=== PATIENT | male | born 1945 | race Caucasian/White ===

== ENCOUNTER → 2016-03-10 | Outpatient (CLI) | payer BC ==
[~2016-03-10] MED LIST: ATOR-14 PO; CLBCRM30 EXT; DESO0.0562; ETAN50IN2 SQ; FEXO1TAB46 PO; FLCO60 TOP; FLUO0.05; FLUO5OIL OTB; HYDR-3785 PO; LISI20TA3 PO; LTRCR30; NAPR-1169 PO; POLYSOL4 OPR; PRED1SUS3; ROPI1TAB PO; TRMCR130WC TOP
[2016-03-10 17:40] LABS: BASO % 0.4 %; BASO ABS # 0.02 K/uL (0-0.2); COMPLETE YES; EOS % 1.5 %; HEMATOCRIT 40.9 % (42-52); IG% 0.2 %; LYMPH % 34.1 %; LYMPH ABS # 1.58 K/uL (1.2-3.4); MEAN CELL VOLUME 93.2 fL (80-100); MEAN CORPUSCULAR HEMOGLOBIN 32.1 pg (25-34); MEAN CORPUSCULAR HGB CONC 34.5 g/dl (32-36); MEAN PLATELET VOLUME 9.2 fL (7.4-10.4); MONO % 5.6 %; NEUT % 58.2 %; PLATELET COUNT 192 K/uL (130-400); RED BLOOD COUNT 4.39 M/uL (4.7-6.1); WHITE BLOOD COUNT 4.63 K/uL (4.8-10.8)
== END | disposition home or self-care (01) ==
LOC: C.LAB1850 17:20
PROVIDERS: ATTEND Dermatology
DX: L40.0 Psoriasis vulgaris (principal)

== ENCOUNTER → 2016-07-10 | Outpatient (CLI) | payer BC ==
[2016-07-10 18:49] LABS: BASO % 1.2 %; BASO ABS # 0.04 K/uL (0-0.2); COMPLETE YES; EOS % 2.6 %; HEMATOCRIT 42.3 % (42-52); LYMPH % 39.3 %; LYMPH ABS # 1.36 K/uL (1.2-3.4); MEAN CELL VOLUME 94.2 fL (80-100); MEAN PLATELET VOLUME 8.7 fL (7.4-10.4); MONO % 12.4 %; NEUT % 44.5 %; PLATELET COUNT 179 K/uL (130-400); RED BLOOD COUNT 4.49 M/uL (4.7-6.1); WHITE BLOOD COUNT 3.46 K/uL (4.8-10.8)
[2016-07-10 19:06] LABS: ALT/SGPT 38 U/L (12-78); AST/SGOT 36 U/L (15-37); BLOOD UREA NITROGEN 22 mg/dl (7-18); BUN/CREATININE RATIO 16.6 (10-20); CARBON DIOXIDE 28 mmol/L (21-32); CHLORIDE 114 mmol/L (98-107); GLUCOSE 105 mg/dl (70-99); POTASSIUM 4.4 mmol/L (3.5-5.1); SODIUM 146 mmol/L (136-145)
[2016-07-10 19:09] LABS: ALB/GLOB RATIO 1.3 (0.9-2); ALKALINE PHOSPHATASE 74 U/L (45-117); CHOLESTEROL 173 mg/dl (0-200); CHOLESTEROL/HDL RATIO 2.4; HDL CHOLESTEROL 71 mg/dl; LDL CHOLESTEROL CALCULATED 88 mg/dl; TRIGLYCERIDES 68 mg/dl (0-150); VERY LOW DENSITY LIPOPROT CALC 14 mg/dl
== END | disposition home or self-care (01) ==
LOC: C.LAB 18:22
PROVIDERS: ATTEND Internal Medicine Pulmonary Disease
DX: I10 Essential (primary) hypertension (principal); L40.9 Psoriasis, unspecified; E78.5 Hyperlipidemia, unspecified; J30.9 Allergic rhinitis, unspecified

== ENCOUNTER → 2017-01-07 | Outpatient (CLI) | payer BC ==
[2017-01-07 16:53] LABS: BASO % 0.5 %; BASO ABS # 0.02 K/uL (0-0.2); COMPLETE YES; EOS % 3.1 %; HEMATOCRIT 42.3 % (42-52); IG% 0.5 %; LYMPH % 37.6 %; LYMPH ABS # 1.47 K/uL (1.2-3.4); MEAN CELL VOLUME 94.2 fL (80-100); MEAN CORPUSCULAR HEMOGLOBIN 33.2 pg (25-34); MEAN CORPUSCULAR HGB CONC 35.2 g/dl (32-36); MEAN PLATELET VOLUME 9.3 fL (7.4-10.4); MONO % 9.7 %; NEUT % 48.6 %; PLATELET COUNT 227 K/uL (130-400); RED BLOOD COUNT 4.49 M/uL (4.7-6.1); WHITE BLOOD COUNT 3.91 K/uL (4.8-10.8)
[2017-01-07 17:06] LABS: ALT/SGPT 40 U/L (12-78); AST/SGOT 38 U/L (15-37); BLOOD UREA NITROGEN 22 mg/dl (7-18); BUN/CREATININE RATIO 14.1 (10-20); CALCIUM 9.2 mg/dl (8.5-10.1); CARBON DIOXIDE 28 mmol/L (21-32); CHLORIDE 108 mmol/L (98-107); CHOLESTEROL 185 mg/dl (0-200); CREATININE 1.57 mg/dl (0.60-1.40); GLUCOSE 95 mg/dl (70-99); POTASSIUM 4.3 mmol/L (3.5-5.1); SODIUM 140 mmol/L (136-145)
[2017-01-07 17:17] LABS: ALB/GLOB RATIO 1.2 (0.9-2); ALKALINE PHOSPHATASE 91 U/L (45-117); CHOLESTEROL/HDL RATIO 2.4; HDL CHOLESTEROL 76 mg/dl; LDL CHOLESTEROL CALCULATED 91 mg/dl; TRIGLYCERIDES 88 mg/dl (0-150); VERY LOW DENSITY LIPOPROT CALC 18 mg/dl
== END | disposition home or self-care (01) ==
LOC: C.LABBC 13:33
PROVIDERS: ATTEND Internal Medicine Pulmonary Disease
DX: I10 Essential (primary) hypertension (principal); R05 Cough; E78.5 Hyperlipidemia, unspecified; L40.50 Arthropathic psoriasis, unspecified; J30.9 Allergic rhinitis, unspecified; D89.89 Other specified disorders involving the immune mechanism, not elsewhere classified

== ENCOUNTER → 2017-07-08 | Outpatient (CLI) | payer BC ==
[2017-07-08 19:05] LABS: BASO % 0.4 %; BASO ABS # 0.02 K/uL (0-0.2); EOS % 2.3 %; EOS ABS # 0.11 K/uL (0-0.5); HEMATOCRIT 41.5 % (42-52); HEMOGLOBIN 15.6 g/dL (14.0-18.0); LYMPH % 42.3 %; LYMPH ABS # 1.99 K/uL (1.2-3.4); MEAN CELL VOLUME 89.8 fL (80-100); MEAN CORPUSCULAR HEMOGLOBIN 33.8 pg (25-34); MEAN CORPUSCULAR HGB CONC 37.6 g/dl (32-36); MEAN PLATELET VOLUME 8.7 fL (7.4-10.4); MONO % 7.7 %; MONO ABS # 0.36 K/uL (0.11-0.59); NEUT % 47.3 %; NEUT ABS # 2.22 K/uL (1.4-6.5); PLATELET COUNT 196 K/uL (130-400); RED CELL DISTRIBUTION WIDTH CV 12.8 % (11.5-14.5); RED CELL DISTRIBUTION WIDTH SD 41.7 fL (36.4-46.3)
[2017-07-08 19:22] LABS: ALBUMIN 4.1 gm/dl (3.4-5.0); ALT/SGPT 38 U/L (12-78); AST/SGOT 36 U/L (15-37); BLOOD UREA NITROGEN 17 mg/dl (7-18); CALCIUM 8.9 mg/dl (8.5-10.1); CARBON DIOXIDE 26 mmol/L (21-32); CHOLESTEROL 168 mg/dl (0-200); GLUCOSE 90 mg/dl (70-99); POTASSIUM 3.9 mmol/L (3.5-5.1); SODIUM 140 mmol/L (136-145)
[2017-07-08 19:25] LABS: ALKALINE PHOSPHATASE 72 U/L (45-117); LDL CHOLESTEROL CALCULATED 83 mg/dl; TOTAL PROTEIN 7.3 gm/dl (6.4-8.2)
== END | disposition home or self-care (01) ==
LOC: C.LAB 18:24
PROVIDERS: ATTEND Internal Medicine Pulmonary Disease
DX: L40.50 Arthropathic psoriasis, unspecified (principal)

== ENCOUNTER → 2017-09-24 | Outpatient (CLI) | payer BC ==
[~2017-09-24] MED LIST changes: -ATOR-14 PO; +ATOR10TA82 PO; +ATR10 PO; -FEXO1TAB46 PO; -FLCO60 TOP; +FLUO0.0119 TOP; -FLUO0.05; -FLUO5OIL OTB; -HYDR-3785 PO; -LISI20TA3 PO; +LOSA100T65 PO; -LTRCR30; +MISCCAP80 PO; -NAPR-1169 PO; +NAPR-22 PO; +POLYSOL4 OPB; -POLYSOL4 OPR; -PRED1SUS3; -ROPI1TAB PO; +SNG10 PO
--- NOTE | 2017-09-24 11:43 | DIAGNOSTIC IMAGING REPORT ---
ABDOMEN 2VIEW W/PA CHEST RTN CLINICAL HISTORY: R10.9 Abdominal [id number] pain. Nausea. COMPARISON STUDY: No previous studies for comparison. FINDINGS: The soft tissues, psoas shadows, renal outlines and intestinal gas pattern appear normal. There is no evidence for bowel obstruction. There is no evidence for free intraperitoneal air. No abnormal abdominal calcifications are seen. A frontal view of the chest was performed and is unremarkable. IMPRESSION: Normal study. The above report was generated using voice recognition software. It may contain grammatical, syntax or spelling errors. Electronically signed by: Elijah Plasencia M.D. 09/24/2017 11:42 AM Dictated Date/Time: 09/24/2017 11:42 AM
== END | disposition home or self-care (01) ==
LOC: C.RAD1850 11:18
PROVIDERS: ATTEND Internal Medicine
DX: R10.9 Unspecified abdominal pain (principal)

== ENCOUNTER 2020-01-20 12:58 | Inpatient (IN) ==
--- NOTE | 2020-01-20 14:42 | Emergency Department Note ---
Impression & Plan Acute right flank pain, Renal colic, CHAPINCITO (acute kidney injury) ED Provider Note NAME: FREEDOM HUGHES AGE: 74 SEX: M : 1945 ARRIVES VIA: Walk-In INFORMANT: [Patient] ED PROVIDER(S): [Brennen French MD] CHIEF COMPLAINT: Flank pain HISTORY OF PRESENT ILLNESS: The patient is a 74-year-old male who states that for 2 weeks, he has had some intermittent right flank pain and some pain in the right groin. He has not noticed any urinary blood. He has had some urinary urgency. The pain has come and gone and has been pressure-like. The pain was a 7 on a scale 1 out of 10 at times. Right now, the pain is mild. There has been no nausea or vomiting. No fever. No cough or cold or congestion. No diarrhea. Patient saw his doctor yesterday and had outpatient testing performed. His white count was normal. He had a creatinine of 2.[address] above his baseline. Urinalysis showed blood but no infection. A CT of the abdomen and pelvis was performed showing a right sided ureteral obstruction from a 4 mm stone. The patient was told to report to the ED today. He is going to have urgent urologic stenting to relieve the obstruction. REVIEW OF SYSTEMS: See HPI for pertinent positives and negatives. A total of ten systems were reviewed and were otherwise negative. PMHx/PSHx: See Below SOCIAL HISTORY: See Below. PHYSICAL EXAM: GENERAL: Patient is in no acute distress. HEENT: No acute trauma, normocephalic atraumatic, mucous membranes moist, no nasal congestion, no scleral icterus. NECK: No stridor, no adenopathy, no meningismus, trachea is midline. LUNGS: Clear to auscultation bilaterally, no wheeze, no rhonchi, breath sounds equal. HEART: Subtle systolic murmur, regular rate and rhythm. ABDOMEN: Soft, mildly tender in the right lower quadrant, bowel sounds positive, no hernias, no peritonitis. EXTREMITIES: No cyanosis or edema, full range of motion of all the joints without pain or difficulty, no signs for acute trauma. NEUROLOGIC: Oriented x 3, no acute motor or sensory deficits, no focal weakness. SKIN: No rash, no jaundice, no diaphoresis. Back: No flank discomfort to percussion. DIFFERENTIAL DIAGNOSIS: Renal colic, UTI, appendicitis, diverticulitis, mesenteric ischemia, aortic pathology, infections, inflammatory bowel disease, PUD, biliary pathology, as well as other pathologies. EMERGENCY DEPARTMENT COURSE/PROCEDURES: ECG: Indication was abdominal pain. The ECG shows a sinus bradycardia with a rate of 54. There is no ST elevation, no PVCs. The QTc is 421. Continuous Cardiac Monitoring: An order was placed for continuous cardiac monitoring. The monitor shows a rate of 72 with normal sinus rhythm. MEDICAL DECISION MAKING: There is no leukocytosis or concerning anemia. No coagulopathy. Creatinine is elevated at 1.87, this is actually improved compared to yesterday. Urinalysis does not show evidence for infection. Coronavirus testing was negative. ECG showed a sinus bradycardia, no acute ischemia. I reviewed the patient's work-up from yesterday. He has a 4 mm right ureteral stone with hydronephrosis. I talked to Dr. Crandall of urology. The patient is going to require stenting. He will need to be hydrated though to try to reverse his acute kidney injury. The patient was ordered for 1 L of IV saline. He did not require anything for pain. I talked to the patient, I spoke with case management. The patient will be hospitalized for this stent placement and for his acute kidney injury. The on- call hospitalist was consulted. Past Med/Surg History Medical History Cataract of right eye Cataract, left eye Chronic kidney disease Diverticulitis History of ASCVD HLD (hyperlipidemia) HTN (hypertension) Surgical History History of colonoscopy Family History Unknown Diabetes Brother Coronary arteriosclerosis Hyperlipidemia Social History Smoking Status: Never smoker Hx Alcohol Use: Yes Alcohol Intake Frequency Comment: SOCIALLY marital status: Current Living Situation: Spouse current occupational status: employed Feels Safe at Home: Yes Allergies Allergies Allergy/AdvReac Type Severity Reaction Status Date / Time cat dander Allergy Unknown ALLERGY Verified 01/20/20 15:02 TESTING + No Known Drug Allergies Allergy Unknown NO KNOWN Verified 01/20/20 15:02 DRUG ALLERGIES PIG WEED Allergy Unknown ALLERGY Uncoded 01/20/20 15:02 TESTED + Home Meds Home Medications Medication Instructions Recorded Confirmed Saccharomyces boulardii 250 mg 250 mg PO UD cap 10/08/18 01/20/20 capsule clobetasol 0.05 % topical ointment 1 applic TOPICAL BID gm 10/08/18 01/20/20 desonide 0.05 % topical cream 1 applic TOPICAL DAILY gm 10/08/18 01/20/20 fluocinonide 0.05 % topical cream 1 applic TOPICAL DAILY gm 10/08/18 01/20/20 multivitamin 1 tab PO DAILY 10/08/18 01/20/20 triamcinolone acetonide 0.1 % 1 applic TOPICAL DAILY gm 10/08/18 01/20/20 topical cream fexofenadine 180 mg tablet 180 mg PO DAILY tab 11/09/18 01/20/20 hydroxyzine HCl 10 mg tablet 10 mg PO TID PRN tab 11/09/18 01/20/20 naproxen 500 mg tablet 500 mg PO BID PRN #180 tab 11/09/18 01/20/20 aeiczvl-sxljnhgloxkts-lsyobacs 250 2 tab PO ONCE PRN tab 07/27/19 01/20/20 mg-250 mg-65 mg tablet etanercept 50 mg SUBCUT UD ml 07/27/19 01/20/20 calcium acetate 667 mg PO DAILY 01/20/20 01/20/20 Previous Rx's Medication Instructions Recorded losartan 100 mg tablet 100 mg PO DAILY #90 tab 07/26/19 atorvastatin 10 mg tablet 10 mg PO DAILY #90 tab 09/16/19 montelukast 10 mg tablet 10 mg PO DAILY #90 tab 10/27/19 cyclobenzaprine 5 mg tablet 5 mg PO TID PRN #20 tab 12/13/19 Results & Data (ED) Vital Signs Vital Signs - 24 hr 01/20/20 13:11 01/20/20 15:14 01/20/20 15:30 Temperature 36.7 C Temperature Source Oral Pulse Rate 72 55 L Pulse Rate [Apical] 54 L Pulse Rate from SpO2 Sensor 56 L Pulse Rhythm [Apical] Pulse Strength [Apical] Respiratory Rate 20 13 18 Respiratory Effort / Characteristics Non-Labored Spontaneous Respiratory Depth Normal Respiratory Pattern Regular Blood Pressure 164/92 H 169/95 H Blood Pressure [Right Arm] 175/94 H Blood Pressure Mean 116 106 Blood Pressure Mean [Right Arm] 121 Blood Pressure Position [Right Arm] Pulse Oximetry 95 100 99 Oxygen Delivery Method Room Air Room Air Room Air Sepsis Recent Fever Within 48 Hours No Sepsis New/Unexplained Change in Mental Status N/A Sepsis Action Taken by Nursing No Action Required 01/20/20 16:00 01/20/20 16:40 Temperature 36.3 C L Temperature Source Oral Pulse Rate 61 Pulse Rate [Apical] 74 Pulse Rate from SpO2 Sensor 61 Pulse Rhythm [Apical] Regular Pulse Strength [Apical] Normal Respiratory Rate 18 18 Respiratory Effort / Characteristics Non-Labored Spontaneous Respiratory Depth Normal Respiratory Pattern Regular Blood Pressure 174/92 H Blood Pressure [Right Arm] 185/104 H Blood Pressure Mean 112 Blood Pressure Mean [Right Arm] 131 Blood Pressure Position [Right Arm] Lying Pulse Oximetry 100 100 Oxygen Delivery Method Room Air Sepsis Recent Fever Within 48 Hours Sepsis New/Unexplained Change in Mental Status Sepsis Action Taken by Long-Term Medications Current Medication List: was personally reviewed by me Laboratory Data Attestation: I reviewed the patient's lab results. Result diagrams: 01/20/20 14:05 01/20/20 14:05 Lab Results 01/20/20 01/20/20 01/20/20 Range/Units 14:05 14:05 14:05 WBC 6.16 (4.8-10.8) K/uL RBC 4.57 L (4.7-6.1) M/uL Hgb 14.6 (14.0-18.0) g/dL Hct 41.9 L (42-52) % MCV 91.7 (80-100) fL MCH 31.9 (25-34) pg MCHC 34.8 (32-36) g/dL RDW Std Deviation 43.3 (36.4-46.3) fL RDW Coeff of Apple 12.9 (11.5-14.5) % Plt Count 283 (130-400) K/uL MPV 9.5 (7.4-10.4) fL PT 11.2 (9.0-12.0) Seconds INR 1.1 (0.9-1.1) APTT 29.8 (21.0-31.0) Seconds PTT Ratio 1.1 Sodium 138 (136-145) mmol/L Potassium 4.5 (3.5-5.1) mmol/L Chloride 108 H (98-107) mmol/L Carbon Dioxide 26 (21-32) mmol/L Anion Gap 4.0 (3-11) BUN 52 H (7-18) mg/dl Creatinine 1.87 H D (0.6-1.4) mg/dl Est Cr Clr Drug Dosing 36.9 ml/min Est GFR ( Amer) 40.7 Est GFR (Non-Af Amer) 35.1 BUN/Creatinine Ratio 27.7 H (10-20) Glucose 88 (70-99) mg/dl Calcium 9.6 (8.5-10.1) mg/dl Urine Color Urine Appearance (Clear) Urine pH (4.5-7.5) Ur Specific [place] (1.000-1.030) Urine Protein (Negative) Urine Glucose (UA) (Negative) Urine Ketones (Negative) Urine Blood (Negative) Urine Nitrite (Negative) Urine Bilirubin (Negative) Urine Urobilinogen (Negative) Ur Leukocyte Esterase (Negative) Urine WBC (Auto) (0-5) /hpf Urine RBC (Auto) (0-4) /hpf U Hyaline Cast (Auto) (0-5) /lpf U Epithel Cells (Auto) (0-5) /lpf Urine Bacteria (Auto) (Negative) SARS-CoV-2 Ag (Rapid) (Negative) 01/20/20 01/20/20 Range/Units 16:15 Unknown WBC (4.8-10.8) K/uL RBC (4.7-6.1) M/uL Hgb (14.0-18.0) g/dL Hct (42-52) % MCV (80-100) fL MCH (25-34) pg MCHC (32-36) g/dL RDW Std Deviation (36.4-46.3) fL RDW Coeff of Apple (11.5-14.5) % Plt Count (130-400) K/uL MPV (7.4-10.4) fL PT (9.0-12.0) Seconds INR (0.9-1.1) APTT (21.0-31.0) Seconds PTT Ratio Sodium (136-145) mmol/L Potassium (3.5-5.1) mmol/L Chloride (98-107) mmol/L Carbon Dioxide (21-32) mmol/L Anion Gap (3-11) BUN (7-18) mg/dl Creatinine (0.6-1.4) mg/dl Est Cr Clr Drug Dosing ml/min Est GFR ( Amer) Est GFR (Non-Af Amer) BUN/Creatinine Ratio (10-20) Glucose (70-99) mg/dl Calcium (8.5-10.1) mg/dl Urine Color Yellow Urine Appearance Clear (Clear) Urine pH 5.0 (4.5-7.5) Ur Specific [place] 1.019 (1.000-1.030) Urine Protein Negative (Negative) Urine Glucose (UA) Negative (Negative) Urine Ketones Negative (Negative) Urine Blood Negative (Negative) Urine Nitrite Negative (Negative) Urine Bilirubin Negative (Negative) Urine Urobilinogen Negative (Negative) Ur Leukocyte Esterase 1+ H (Negative) Urine WBC (Auto) 5-10 H (0-5) /hpf Urine RBC (Auto) 0-4 (0-4) /hpf U Hyaline Cast (Auto) 1-5 (0-5) /lpf U Epithel Cells (Auto) 5-10 H (0-5) /lpf Urine Bacteria (Auto) Negative (Negative) SARS-CoV-2 Ag (Rapid) Negative (Negative) Administered Medications Discontinued Medications Sodium Chloride (Nss 1000ml) 1,000 mls @ 999 mls/hr IV .Q1H1M ONE Stop: 01/20/20 15:49 Last Admin: 01/20/20 15:34 Dose: 999 mls/hr Documented by: [id number] Imaging Data Radiologist's Impression: 01/19/[address] WITHOUT CONTRAST CT DOSE: 342.26 mGy.cm HISTORY: Follow up study in a patient with history of renal calculi. Acute right-sided flank pain N20.0 - Calculus of kidney TECHNIQUE: Multiaxial CT images of the abdomen and pelvis were performed without contrast. A dose lowering technique was utilized adhering to the principles of ALARA. COMPARISON STUDY: CT abdomen and pelvis 01/12/2019, renal ultrasound 10/13/2018. FINDINGS: Clear lung bases. No pneumatosis or pneumoperitoneum. Imaged inferior cardiac chambers are unremarkable. Limited evaluation of the solid abdominal organs without the use of IV contrast. The spleen, pancreas, adrenal glands, contracted gallbladder and liver appear unremarkable. 10 mm left hepatic lobe cyst. There are numerous nonobstructing bilateral nephrolithiasis measuring up to approximately 4 mm bilaterally. There is an exophytic 9 mm indeterminate intermediate attenuating lesion of the lateral interpolar right kidney with [place]oun[place] of 32, possibly reflective of a proteinaceous or hemorrhagic cyst. There is mild to moderate right-sided hydroureteronephrosis secondary to a 4 x 4 x 4 mm irregular calculus of the right ureterovesicular junction. Numerous pelvic basin calcifications. Mild prostamegaly. Partial distention of the urinar y bladder with mild wall thickening and perivesicular stranding. Small left and lqozf-sr-cmxhnndp right fat filled inguinal hernias. Calcified plaque of the abdominal aorta without aneurysm. No adenopathy. Indeterminate hyperdense material noted within the dependent stomach. There is no bowel obstruction or bowel wall thickening. Colonic diverticulosis without acute diverticulitis. Moderate fecal retention. Noninflamed appendix. Scattered small bowel air-fluid levels, likely physiologic. Degenerative changes of the spine, pelvis and hips. IMPRESSION: 1. Mild to moderate right-sided hydroureteronephrosis secondary to an obstructing 4 mm calculus of the right ureterovesicular junction. 2. Numerous nonobstructing bilateral nephrolithiasis. 3. No bowel obstruction or bowel wall thickening. 4. Moderate fecal retention. 5. Additional findings as above. Discharge Plan Visit Data Chief Complaint: Urinary Symptoms Stated Complaint: KIDNEY PAIN, BLOOD IN URINE, BLOCKAGE, SENT BY DR GREENFIELD Provider: Brennen French Discharge Problem: Acute right flank pain, Renal colic, CHAPINCITO (acute kidney injury) Patient Disposition: Admitted As Inpatient Condition: Good Discharge Instructions Interventions: ED Discharge Assessment Last Done: 01/20/20 16:13
[2020-01-20] MEDS ORDERED: SODIUM CHLORIDE 0.9% 1000ML 1,000 ML IV ONE (14:49)
[2020-01-20 15:16] LABS: Hematocrit (blood only) 41.9 % (42-52); Hemoglobin 14.6 g/dL (14.0-18.0); Mean Corpuscular Hemoglobin 31.9 pg (25-34); Mean Corpuscular Hgb Conc 34.8 g/dL (32-36); Mean Corpuscular Volume 91.7 fL (80-100); Mean Platelet Volume 9.5 fL (7.4-10.4); Platelet Count 283 K/uL (130-400); RDW Coefficient of Variation 12.9 % (11.5-14.5); RDW Standard Deviation 43.3 fL (36.4-46.3); Red Blood Count 4.57 M/uL (4.7-6.1); White Blood Count 6.16 K/uL (4.8-10.8)
[2020-01-20 15:26] LABS: BUN Creatinine Ratio 27.7 (10-20); Calcium 9.6 mg/dl (8.5-10.1); Creatinine Clr Calc Pharmacy 36.9 ml/min; Est GFR (African American) 40.7; Est GFR (Non-African American) 35.1; Potassium 4.5 mmol/L (3.5-5.1)
[2020-01-20 15:32] LABS: INR 1.1 (0.9-1.1); Partial Thromboplastin Ratio 1.1; Partial Thromboplastin Time 29.8 Seconds (21.0-31.0); Prothrombin Time 11.2 Seconds (9.0-12.0)
--- NOTE | 2020-01-20 15:55 | History & Physical Report ---
Date of Service January 20, 2020 Assessment & Plan (1) Nephrolithiasis: Noted on CTAP, b/l with R sided 4mm obstructing Initially told no OR available until tomorrow, however pt called for OR as I was leaving room IVF Urology c/s Can eat post-op from my standpoint Cr 2.2 yesterday, improving to 1.8 on admission UA yesterday noted for blood, repeat pending Pre-op COVID screening neg Pt has no s/sx concerning for COVID, purely done as screening (2) HTN (hypertension): Holding losartan for renal function (3) HLD (hyperlipidemia): Holding statin for renal function (4) Psoriatic arthropathy: Every other week etanercept dosing (5) DVT prophylaxis: SCDs given OR status History of Present Illness Primary Care Provider: Carlos Patten MD 74 y/o M c/o R flank pain. Pt was seen as an outpt and had a CTAP that was n oted for obstructing renal stones. Pt was sent to the ED for this. He is eating without issue. Pt initially thought this pain was related to his R sided inguinal hernia, however his pain became worse than usual over the last two weeks. Pain started in the R flank and moved around to the lower pelvis. No hematuria noted by pt. Pt denies fever, SOB, chest pain, abd pain, n/v/c/d, LE pain or swelling. It was initially thought that he could be taken to the OR today, however this is apparently not an option until tomorrow. Allergies Allergy/AdvReac Type Severity Reaction Status Date / Time cat dander Allergy Unknown ALLERGY Verified 01/20/20 15:02 TESTING + No Known Drug Allergies Allergy Unknown NO KNOWN Verified 01/20/20 15:02 DRUG ALLERGIES PIG WEED Allergy Unknown ALLERGY Uncoded 01/20/20 15:02 TESTED + Home Medications Medication Instructions Recorded Confirmed Type Saccharomyces boulardii 250 mg 250 mg PO UD cap 10/08/18 01/20/20 History capsule clobetasol 0.05 % topical ointment 1 applic TOPICAL BID gm 10/08/18 01/20/20 History desonide 0.05 % topical cream 1 applic TOPICAL DAILY gm 10/08/18 01/20/20 History fluocinonide 0.05 % topical cream 1 applic TOPICAL DAILY gm 10/08/18 01/20/20 History multivitamin 1 tab PO DAILY 10/08/18 01/20/20 History triamcinolone acetonide 0.1 % 1 applic TOPICAL DAILY gm 10/08/18 01/20/20 History topical cream fexofenadine 180 mg tablet 180 mg PO DAILY tab 11/09/18 01/20/20 History hydroxyzine HCl 10 mg tablet 10 mg PO TID PRN tab 11/09/18 01/20/20 History naproxen 500 mg tablet 500 mg PO BID PRN #180 tab 11/09/18 01/20/20 History losartan 100 mg tablet 100 mg PO DAILY #90 tab 07/26/19 01/20/20 Rx lpjqrnw-wcxjzhmpxnhee-kfowzhvy 250 2 tab PO ONCE PRN tab 07/27/19 01/20/20 History mg-250 mg-65 mg tablet etanercept 50 mg SUBCUT UD ml 07/27/19 01/20/20 History atorvastatin 10 mg tablet 10 mg PO DAILY #90 tab 09/16/19 01/20/20 Rx montelukast 10 mg tablet 10 mg PO DAILY #90 tab 10/27/19 01/20/20 Rx cyclobenzaprine 5 mg tablet 5 mg PO TID PRN #20 tab 12/13/19 01/20/20 Rx calcium acetate 667 mg PO DAILY 01/20/20 01/20/20 History Past Med/Surg History Medical History (Updated 01/20/20 @ 16:25 by Lisa Guy DO) Cataract of right eye Cataract, left eye Chronic kidney disease Diverticulitis History of ASCVD HLD (hyperlipidemia) HTN (hypertension) Surgical History History of colonoscopy Family History Unknown Diabetes Brother Coronary arteriosclerosis Hyperlipidemia Social History Smoking Status: Never smoker Hx Alcohol Use: Yes Alcohol Intake Frequency Comment: SOCIALLY marital status: Current Living Situation: Spouse current occupational status: employed Feels Safe at Home: Yes Review of Systems Review of Systems: Pertinent positives and negatives reviewed in HPI--all others negative Physical Exam Constitutional: WD/WN, vitals as above Eyes: normal visual vera by confrontation and + anicteric sclerae Neck: normal visual inspection and trachea midline Respiratory: normal respiratory effort, lungs clear to auscultation Cardiovascular: Rate/Rhythm: regular rate and regular rhythm Gastrointestinal (Abdomen): Inspection/Auscultation: abdomen not distended Percussion/Palpation: + abdomen tender (L sided TTP) and abdomen soft Musculoskeletal: Head/Neck/Chest: normocephalic and head atraumatic negative for edema, peripheral pulses intact Skin: no rashes, warm and dry Neurologic: awake; not confused Speech / Cognition: normal speech Psychiatric: A+Ox3, euthymic affect Results & Data Results & Data ([facility] [place]) Vital Signs (Past 12 Hours) Vital Signs Temp Pulse Pulse Resp BP BP Pulse Ox 01/20/20 15:14 54 L 13 175/94 H 100 01/20/20 13:11 36.7 C 72 20 164/92 H 95 Diagnostic Findings CTAP: 1. Mild to moderate right-sided hydroureteronephrosis secondary to an obstructing 4 mm calculus of the right ureterovesicular junction. 2. Numerous nonobstructing bilateral nephrolithiasis. 3. No bowel obstruction or bowel wall thickening. 4. Moderate fecal retention. 5. Additional findings as above. ECG Rhythm: sinus bradycardia Code Status & VTE Plan Code Status Full code VTE Prophylaxis Plan VTE Prophylaxis will be ordered: Yes PG Care Time/CCT Total # of Minutes Spent Total Time Spent with Patient: Total time spent is greater than 50% in coordination of care (as documented) at patient's floor/unit and/or counseling patient: Coding Level of Care Code 56506 Initial Inpt Care Lvl 3 Diagnoses Nephrolithiasis N20.0 HTN (hypertension) I10 HLD (hyperlipidemia) E78.5 Psoriatic arthropathy L40.50 DVT prophylaxis Z29.9
--- NOTE | 2020-01-20 16:09 | Urology Consultation ---
Date of Consultation January 20, 2020 Assessment & Plan (1) Nephrolithiasis: Risks and benefits discussed at length for procedure. These include bleeding, infection, injury to surrounding tissues or organs, and risks associated with anesthesia. Patient states understanding and agrees to proceed. Will sign consent and schedule. Plan for cystoscopy with right stent placement. History of Present Illness History of Present Illness New consultation for patient with stone, discomfort, obstruction, and ill feelings. Patient developed sudden onset of pain into flank going down and radiating into groin and back in waves comes and goes. Can be severe at times. Discussed and reviewed patient's family history for any history of stone disease. Also, discussed patient's medical surgery history especially related to any history of urinary issues or stone disease. Patient was admitted and is undergoing observation. Has been for greater than 1 week. Had significant CHAPINCITO on morning labs with PCP Allergies Allergy/AdvReac Type Severity Reaction Status Date / Time cat dander Allergy Unknown ALLERGY Verified 01/20/20 15:02 TESTING + No Known Drug Allergies Allergy Unknown NO KNOWN Verified 01/20/20 15:02 DRUG ALLERGIES PIG WEED Allergy Unknown ALLERGY Uncoded 01/20/20 15:02 TESTED + Home Medications Medication Instructions Recorded Confirmed Type Saccharomyces boulardii 250 mg 250 mg PO UD cap 10/08/18 01/20/20 History capsule clobetasol 0.05 % topical ointment 1 applic TOPICAL BID gm 10/08/18 01/20/20 History desonide 0.05 % topical cream 1 applic TOPICAL DAILY gm 10/08/18 01/20/20 History fluocinonide 0.05 % topical cream 1 applic TOPICAL DAILY gm 10/08/18 01/20/20 History multivitamin 1 tab PO DAILY 10/08/18 01/20/20 History triamcinolone acetonide 0.1 % 1 applic TOPICAL DAILY gm 10/08/18 01/20/20 History topical cream fexofenadine 180 mg tablet 180 mg PO DAILY tab 11/09/18 01/20/20 History hydroxyzine HCl 10 mg tablet 10 mg PO TID PRN tab 11/09/18 01/20/20 History naproxen 500 mg tablet 500 mg PO BID PRN #180 tab 11/09/18 01/20/20 History losartan 100 mg tablet 100 mg PO DAILY #90 tab 07/26/19 01/20/20 Rx jpalwmu-vsariqiavranq-stnrpuky 250 2 tab PO ONCE PRN tab 07/27/19 01/20/20 History mg-250 mg-65 mg tablet etanercept 50 mg SUBCUT UD ml 07/27/19 01/20/20 History atorvastatin 10 mg tablet 10 mg PO DAILY #90 tab 09/16/19 01/20/20 Rx montelukast 10 mg tablet 10 mg PO DAILY #90 tab 10/27/19 01/20/20 Rx cyclobenzaprine 5 mg tablet 5 mg PO TID PRN #20 tab 12/13/19 01/20/20 Rx calcium acetate 667 mg PO DAILY 01/20/20 01/20/20 History Patient History Medical History Cataract of right eye Cataract, left eye Chronic kidney disease Diverticulitis History of ASCVD HLD (hyperlipidemia) HTN (hypertension) Surgical History History of colonoscopy Family History Unknown Diabetes Brother Coronary arteriosclerosis Hyperlipidemia Social History Smoking Status: Never smoker Hx Alcohol Use: Yes Alcohol Intake Frequency Comment: SOCIALLY marital status: Current Living Situation: Spouse current occupational status: employed Feels Safe at Home: Yes Review of Systems Review of Systems: All systems reviewed & are unremarkable except as noted in HPI & below Physical Exam Physical Exam: General: Alert and oriented x 3 in no acute distress. Patient is well nourished and well kept. HEENT: Normocephalic Atraumatic. Inspection normal. Cranial Nerves 2-12 Grossly intact. Nares are clear. Neck is supple. Normal inspection of face. Normal inspection of neck. Neurologic: No deficits on inspection. Baseline for motor function and sensory. Psychologic: Normal affect. Respiratory: Nonlabored. No use of accessory muscles. No tachypnea or dyspnea. Cardiovascular: No tachycardia Skin: [place] and Dry. No rashes or visible lesions. Extremities: Moving without issues. No motor deficits on inspection Lymphatics: No edema Abdomen: Soft Non-distended. No acites. No rebound or guarding. Results & Data ([facility]) Vital Signs (Past 12 Hours) Vital Signs Temp Pulse Pulse Resp BP BP Pulse Ox 01/20/20 15:14 54 L 13 175/94 H 100 01/20/20 13:11 36.7 C 72 20 164/92 H 95 PG Care Time/CCT Total # of Minutes Spent Total Time Spent with Patient: Total time spent is greater than 50% in coordination of care (as documented) at patient's floor/unit and/or counseling patient: Coding Level of Care Code 86351 Initial Inpt Care Lvl 3 Diagnoses Nephrolithiasis N20.0
[2020-01-20] MEDS ORDERED: ONDANSETRON INJ 2 MG/ML 2 ML VIAL ONE (16:16)
[2020-01-20] MEDS ORDERED: LIDOCAINE HCL 2% 2 ML VIAL/AMP(20MG/ML) INFIL ONE (16:16)
[2020-01-20] MEDS ORDERED: DEXAMETHASONE SOD INJ 4 MG/ML VIAL ONE (16:16)
[2020-01-20] MEDS ORDERED: fentaNYL citrate 100 MCG/2 ML VIAL ONE (16:16)
[2020-01-20] MEDS ORDERED: MIDAZOLAM HCL 1 MG/ML 2ML VIAL ONE (16:16)
[2020-01-20] MEDS ORDERED: PROPOFOL IV EMULSION 10 MG/ML 20 ML VIAL IV ONE ×2 (16:16→17:34)
--- NOTE | 2020-01-20 16:17 | Anesthesiology Consultation ---
Date of Service January 20, 2020 Assessment & Plan Chart Review Chart Review: Acceptable Risk for Surgery and Patient NOT seen in Pre Admission Testing Consults Requested none ASA ASA3 Proposed Anesthesia Anesthesia Type: MAC History Surgery Operation Date: 01/20/20 15:00 Proposed Procedures p Right Ureteral Stent Insertion/Removal - Curt Crandall DO Height/Weight Height: 5 ft 10 in Weight: 74.7 kg Allergies Allergy/AdvReac Type Severity Reaction Status Date / Time cat dander Allergy Unknown ALLERGY Verified 01/20/20 15:02 TESTING + No Known Drug Allergies Allergy Unknown NO KNOWN Verified 01/20/20 15:02 DRUG ALLERGIES PIG WEED Allergy Unknown ALLERGY Uncoded 01/20/20 15:02 TESTED + Medications Home Medications Medication Instructions Recorded Confirmed Last Taken Saccharomyces boulardii 250 mg 250 mg PO UD cap 10/08/18 01/20/20 Unknown capsule clobetasol 0.05 % topical ointment 1 applic TOPICAL BID gm 10/08/18 01/20/20 Unknown desonide 0.05 % topical cream 1 applic TOPICAL DAILY gm 10/08/18 01/20/20 Unknown fluocinonide 0.05 % topical cream 1 applic TOPICAL DAILY gm 10/08/18 01/20/20 Unknown multivitamin 1 tab PO DAILY 10/08/18 01/20/20 Unknown triamcinolone acetonide 0.1 % 1 applic TOPICAL DAILY gm 10/08/18 01/20/20 Unknown topical cream fexofenadine 180 mg tablet 180 mg PO DAILY tab 11/09/18 01/20/20 Unknown hydroxyzine HCl 10 mg tablet 10 mg PO TID PRN tab 11/09/18 01/20/20 Unknown naproxen 500 mg tablet 500 mg PO BID PRN #180 tab 11/09/18 01/20/20 Unknown losartan 100 mg tablet 100 mg PO DAILY #90 tab 07/26/19 01/20/20 Unknown ylnwnnx-shqargkgrqfbu-lrbwaowa 250 2 tab PO ONCE PRN tab 07/27/19 01/20/20 Unknown mg-250 mg-65 mg tablet etanercept 50 mg SUBCUT UD ml 07/27/19 01/20/20 Unknown atorvastatin 10 mg tablet 10 mg PO DAILY #90 tab 09/16/19 01/20/20 Unknown montelukast 10 mg tablet 10 mg PO DAILY #90 tab 10/27/19 01/20/20 Unknown cyclobenzaprine 5 mg tablet 5 mg PO TID PRN #20 tab 12/13/19 01/20/20 Unknown calcium acetate 667 mg PO DAILY 01/20/20 01/20/20 Unknown Past Medical History Medical History (Updated 01/20/20 @ 16:15 by Beni Montaño MD) Cataract of right eye Cataract, left eye Chronic kidney disease Diverticulitis History of ASCVD HLD (hyperlipidemia) HTN (hypertension) Exercise / Class Metabolic Activity III < 4 Walking/Shop/Light housework Past Family History Family History Unknown Diabetes Brother Coronary arteriosclerosis Hyperlipidemia Past Surgical History Surgical History History of colonoscopy Past Anesthesia History No Hx of Anesthesia Complications and No Family Hx of Anesthesia Complications History of PONV No Hx of PONV and No Hx of Motion Sickness Social History Smoking Status: Never smoker Hx Alcohol Use: Yes Physical Exam Vital Signs Last Vital Signs Temp 36.7 C 01/20/20 13:11 Pulse 61 01/20/20 16:00 Resp 18 01/20/20 16:00 BP 174/92 H 01/20/20 16:00 Pulse Ox 100 01/20/20 16:00 Testing Laboratory Results 01/20/20 14:05 01/20/20 14:05 PT 11.2 Seconds (9.0-12.0) 01/20/20 14:05 INR 1.1 (0.9-1.1) 01/20/20 14:05 APTT 29.8 Seconds (21.0-31.0) 01/20/20 14:05 Electrocardiogram Date: 01/20/20 Findings: + SB @ (at 54)
[2020-01-20] MEDS ORDERED: LABETALOL HCL IV 5 MG/ML 20ML IV PRN (16:45)
[2020-01-20] MEDS ORDERED: ONDANSETRON INJ 2 MG/ML 2 ML VIAL IV PRN ×2 (16:45→18:50)
[2020-01-20] MEDS ORDERED: ePHEDrine sulfate 50 MG/ML AMP IV PRN (16:45)
[2020-01-20] MEDS ORDERED: fentaNYL citrate 100 MCG/2 ML VIAL IV PRN (16:45)
[2020-01-20] MEDS ORDERED: FLUMAZENIL 0.1 MG/1 ML 10 ML VIAL IV PRN (16:45)
[2020-01-20] MEDS ORDERED: NALOXONE HCL 0.4 MG/1 ML VIAL/CARP IV PRN (16:45)
[2020-01-20] MEDS ORDERED: ATROPINE SULFATE 0.1 MG/ML 10ML SYR IV PRN (16:45)
[2020-01-20] MEDS ORDERED: PROMETHAZINE HCL 12.5 MG in SODIUM CHLORIDE 0.9% 50 ML IV PRN (16:45)
[2020-01-20 17:06] LABS: Appearance Urine Clear (Clear); Bacteria Urine Automated Negative (Negative); Bilirubin Urine Negative (Negative); Blood Urine Negative (Negative); Color Urine Yellow; Glucose Urine UA Negative (Negative); Ketones Urine Negative (Negative); Leukocyte Esterase Urine 1+ (Negative); Nitrite Urine Negative (Negative); Protein Urine Negative (Negative); RBC Urine Automated 0-4 /hpf (0-4); Specific Gravity Urine 1.019 (1.000-1.030); Urobilinogen Urine Negative (Negative)
[2020-01-20] MEDS ORDERED: ceFAZolin 1000MG 1,000 MG/7.5 ML SYR IV ONE (17:33)
--- NOTE | 2020-01-20 17:37 | Operative Report ---
PG Post Operative Report Pre & Post Diagnosis Operation Date: 01/20/20 15:00 Pre-Op Diagnosis: Obstructing stone Post: Same I identified the patient and participated in the time-out.: Yes Procedure Operation Date: 01/20/20 15:00 Actual Procedures p Cystoscopy, Right Retrograde Pyelogram, Right Ureteral Stent Insertion with extraction of right ureteral oriface stone (Right) - Curt Crandall DO Surgeon Curt Crandall, II, DO Cell Tender Helper None Estimated Blood Loss 1 Findings Consistent with Post-Op Diagnosis Stent placed in good position. Specimens Right UO stone Drains 6 Fr Multilength Anesthesia Type MAC Complications none Disposition Disposition: Recovery Room Indications Patient with obstruction. Risks and benefits discussed at length. Description of Procedure Patient was consented and brought back to the operating room. Patient was placed under anesthesia in the supine position and moved to the dorsal lithotomy position. Patient was prepped and draped in the regular sterile fashion. A time out was completed. A 30degree Cystoscope was placed into the bladder and the entire bladder was examined. The UO's were identified. A stone was noted at the right UO. It was grasped and basketed and removed. This was sent for analysis. The UO was then cannulized with a catheter and a retrograde pyelogram was completed. A wire was then placed. With the wire in place, a 6 Fr Double J stent was placed. It was confirmed with fluoroscopy. With the stent in place, the bladder was emptied. The scope was removed. The patient was cleaned, aroused from anesthesia, and transferred to the pacu in stable condition having tolerated the procedure well with no complications. I was present and participated in all aspects of the procedure. The patient will be monitored in the PACU until transferred. I attest to the content of the Intraoperative Record and any orders documented therein. Any exceptions are noted below.
--- NOTE | 2020-01-20 18:05 | Anesthesiology Progress Note ---
Date of Service January 20, 2020 Anesthesia Post Procedure Vital Signs Vital Signs: Temp Pulse Pulse Resp BP BP Pulse Ox 01/20/20 17:55 49 L 14 121/86 96 01/20/20 17:45 36.3 C L 48 L 13 132/77 100 01/20/20 16:40 36.3 C L 74 18 185/104 H 100 01/20/20 16:00 61 18 174/92 H 100 01/20/20 15:30 55 L 18 169/95 H 99 01/20/20 15:14 54 L 13 175/94 H 100 01/20/20 13:11 36.7 C 72 20 164/92 H 95 Pain Intensity Abdomen: Pain Intensity: 3 Transfer of Care Handoff Completed per policy Notes Mental Status: alert / awake / arousable Patient Amnestic to Procedure: Yes Nausea / Vomiting: adequately controlled Pain: adequately controlled Airway Patency, RR, SpO2: stable & adequate BP & HR: stable & adequate Hydration State: stable & adequate Anesthetic Complications: no major complications apparent
[2020-01-20] MEDS ORDERED: CYCLOBENZAPRINE HCL 5 MG TAB PO PRN (18:50)
[2020-01-20] MEDS ORDERED: hydrOXYzine HCl 10 MG TAB PO PRN (18:50)
[2020-01-20] MEDS ORDERED: MAGNESIUM HYDROXIDE SUSP 30 ML UDC PO PRN (18:50)
--- NOTE | 2020-01-20 19:10 | Fluoroscopy Report ---
INTRAOPERATIVE RADIOGRAPHS CLINICAL HISTORY: Right ureteral stent placement. Fluoroscopy time: 62 seconds. FINDINGS: 4 spot fluoroscopic views of the right abdomen are correlated with abdominal CT dated 01/19. The initial image shows contrast opacification of the dilated distal right ureter. The second image shows contrast opacification of the renal collecting system with moderate right-sided hydroneph rosis. The final 2 images show the proximal and distal ends of a right ureteral stent in appropriate position. IMPRESSION: Intraoperative images from a right ureteral stent placement procedure as above. Electronically signed by: Brennen Martinez M.D. 01/20/2020 7:08 PM
[2020-01-20] MEDS ORDERED: DIATRIZOATE MEGLUMINE 30% 100ML VIAL INSTIL ONE (19:16)
[2020-01-20] MEDS: D5W AND NSS 1,000 ML IV SCH (21:19)
[2020-01-20] MEDS: SACCHAROMYCES BOULARDII 250 MG CAP PO SCH (21:19)
[2020-01-20] MEDS: CLOBETASOL PROPIONATE 0.05% OINT 15 GM TUBE EXT SCH (21:19)
[2020-01-20] MEDS: ACETAMINOPHEN 325 MG TAB PO PRN (22:31)
[2020-01-20] MEDS: EXCEDRIN: ORDER AWAITING ACTION SCH (23:56)
[2020-01-21] MEDS: D5W AND NSS 1,000 ML IV SCH ×2 (07:26→13:35)
[2020-01-21] MEDS: ACETAMINOPHEN 325 MG TAB PO PRN (07:27)
[2020-01-21 07:34] LABS: BUN Creatinine Ratio 25.1 (10-20); Calcium 8.6 mg/dl (8.5-10.1); Creatinine Clr Calc Pharmacy 45.5 ml/min; Est GFR (African American) 52.3; Est GFR (Non-African American) 45.1; Potassium 4.3 mmol/L (3.5-5.1)
--- NOTE | 2020-01-21 07:37 | Hospitalist Progress Note ---
Date of Service January 21, 2020 Assessment & Plan (1) Nephrolithiasis: 74 y/o M w/ hx of htn, hld, ckd, psoriasis who presents w/ R obstructing kidney stone w/ 2 wks of r flank pain. s/p R ureteral stent placement 01/20 and stone removal. Noted on CTAP, b/l with R sided 4mm obstructing 1. Mild to moderate right-sided hydroureteronephrosis secondary to an obstructing 4 mm calculus of the right ureterovesicular junction. 2. Numerous nonobstructing bilateral nephrolithiasis. s/p R ureteral stent w/ extraction of stone fragment. may need lithotripsy outpatient for remaining nonobstruction stones. per urology, will need KUB prior to outpatient urology f/u visit IVF i/o 2.8L in 2.2L out no blood on UA this admission Urology c/s pain control: tylenol 650 q4prn [place] on ckd. improving Cr 2.2 yesterday, improving to 1.8 on admission. 1.52 today UA 01/20/20 noted for blood, repeat did not show blood htn: hypertensive this AM. PO meds were held given CHAPINCITO. restarted hld: restarted statin today psoriasis etanercept every other week as outpatient heart healthy diet. d5w nss 100 ml/hr scds med/surg dispo: encourage po intake. possible dispo home today (2) HTN (hypertension): (3) HLD (hyperlipidemia): (4) Psoriatic arthropathy: Every other week etanercept dosing (5) DVT prophylaxis: SCDs given OR status Admission and Anticipated Discharge Date Admission Date: January 20, 2020 Subjective 6-7/10 pain in R groin area. R flank pain that he came in w/ has resolved. No f/c, N/V, abd pain. Reports some dysuria and hematuria (noticed in container yesterday, somewhat less this AM). Denies groin numbness/tingling or urinary incontinence. Minimal appetite, refused breakfast. Review of Systems Review of Systems: Constitutional: Denies fever, chills Cardiovascular: Denies Chest pain Respiratory: Denies shortness of breath, difficulty breathing Gastrointestinal: Denies abdominal pain, nausea, vomiting, constipation, diarrhea Genitourinary: See HPI Musculoskeletal: Denies weakness Neurological: Denies headache, numbness, tingling, focal weakness Physical Exam Physical Exam: General: Grossly A&O. NAD. Cooperative. HEENT: Atraumatic, normocephalic. Pulm: CTAB. -wheezes, -rales, -rhonchi. Symmetrical chest rise. No respiratory distress. Cardiac: RRR, -mrg. Radial pulses intact and symmetrical. Abdominal: Soft, nondistended. TTP at R groin/inguinal area. Mild CVA TTP on R. Results & Data Results & Data ([facility]) Vital Signs (Past 12 Hours) Vital Signs Temp Pulse Resp BP Pulse Ox 01/21/20 07:21 36.8 C 59 L 18 182/66 H 96 01/21/20 04:00 36.6 C 60 18 136/82 97 01/20/20 23:18 36.6 C 52 L 14 159/84 H 96 01/20/20 21:18 36.4 C L 50 L 16 165/85 H 95 01/20/20 20:18 36.3 C L 51 L 14 164/92 H 97 Resident Activity Tracking Resident Involvement: Resident Care Provided Care Provided: Adult Hospital Medicine
[2020-01-21] MEDS ORDERED: PNEUMOCOCCAL Polysaccharide Vaccine 25mcg/0.5mL vial/Syr IM ONE (08:00)
[2020-01-21] MEDS ORDERED: MONTELUKAST SODIUM 10 MG TABLET PO SCH (09:00)
[2020-01-21] MEDS ORDERED: TRIAMCINOLONE ACET 0.1% CR 15 GM TUBE TOP SCH (09:00)
[2020-01-21] MEDS ORDERED: FEXOFENADINE HCL 180 MG TAB PO SCH (09:00)
[2020-01-21] MEDS ORDERED: DESONIDE CR 15 GM TUBE EXT SCH (09:00)
[2020-01-21] MEDS ORDERED: FLUOCINONIDE 0.05% CR 15 GM TUBE EXT SCH (09:00)
[2020-01-21] MEDS: SACCHAROMYCES BOULARDII 250 MG CAP PO SCH (09:01)
[2020-01-21] MEDS: EXCEDRIN: ORDER AWAITING ACTION SCH ×2 (09:03→17:38)
[2020-01-21] MEDS: CLOBETASOL PROPIONATE 0.05% OINT 15 GM TUBE EXT SCH (09:03)
[2020-01-21] MEDS ORDERED: LOSARTAN POTASSIUM 50 MG TAB PO SCH (10:15)
[2020-01-21] MEDS ORDERED: ATORVASTATIN 10 MG TAB PO SCH (10:15)
--- NOTE | 2020-01-21 11:09 | Urology Progress Note ---
Date of Service January 21, 2020 Assessment & Plan (1) Nephrolithiasis: Patient has been doing well. Postop day 1 status post right stent placement for obstructing stone with CHAPINCITO. Had extraction of small stone fragment at same time. Will likely need to maintain stent for 7 to 14 days with plans for likely intervention either lithotripsy or ureteroscopy. Will need KUB prior to follow- up in office to assess stone burden Continue with hydration and supportive care. Continue to monitor. Okay for discharge when cleared by medicine Admission and Anticipated Discharge Date Admission Date: January 20, 2020 Subjective Postop from stent placement for obstruction issues. Patient has been tolerating well. Has noticed some frequency and urgency. Has not had severe pain in the back and flank. Does have occasional burning and irritation. No severe episodes or major changes. No new nausea or vomiting. Had tolerated anesthesia without major problems Review of Systems Review of Systems: All systems reviewed & are unremarkable except as noted in HPI & below Physical Exam Physical Exam: General: Alert in no acute distress. HEENT: Normocephalic Atraumatic. Inspection normal. Cranial Nerves 2-12 Grossly intact. Normal inspection of face. Normal inspection of neck. Psychologic: Normal affect. Respiratory: Nonlabored. No use of accessory muscles. No tachypnea or dyspnea. Cardiovascular: No tachycardia Skin: [place] and Dry. No rashes or visible lesions. Extremities/Lymphatics: No edema Abdomen: Soft Non-distended. No rebound or guarding. Results & Data ([facility]) Vital Signs (Past 12 Hours) Vital Signs Temp Pulse Resp BP Pulse Ox 01/21/20 07:21 36.8 C 59 L 18 182/66 H 96 01/21/20 04:00 36.6 C 60 18 136/82 97 01/20/20 23:18 36.6 C 52 L 14 159/84 H 96 PG Care Time/CCT Total # of Minutes Spent Total Time Spent with Patient: Total time spent is greater than 50% in coordination of care (as documented) at patient's floor/unit and/or counseling p atient: Coding Level of Care Code 61970 Subseq Hosp Care Lvl 2 Diagnoses Nephrolithiasis N20.0
--- NOTE | 2020-01-21 11:27 | Discharge Summary ---
Date of Service January 21, 2020 Admission HPI Per Admitting Provider 74 y/o M c/o R flank pain. Pt was seen as an outpt and had a CTAP that was noted for obstructing renal stones. Pt was sent to the ED for this. He is eating without issue. Pt initially thought this pain was related to his R sided inguinal hernia, however his pain became worse than usual over the last two weeks. Pain started in the R flank and moved around to the lower pelvis. No hematuria noted by pt. Pt denies fever, SOB, chest pain, abd pain, n/v/c/d, LE pain or swelling. It was initially thought that he could be taken to the OR today, however this is apparently not an option until tomorrow. Admission Exam Per Admitting Provider Constitutional: WD/WN, vitals as above Eyes: normal visual vera by confrontation and + anicteric sclerae Neck: normal visual inspection and trachea midline Respiratory: normal respiratory effort, lungs clear to auscultation Cardiovascular: Rate/Rhythm: regular rate and regular rhythm Gastrointestinal (Abdomen): Inspection/Auscultation: abdomen not distended Percussion/Palpation: + abdomen tender (L sided TTP) and abdomen soft Musculoskeletal: Head/Neck/Chest: normocephalic and head atraumatic negative for edema, peripheral pulses intact Skin: no rashes, warm and dry Neurologic: awake; not confused Speech / Cognition: normal speech Psychiatric: A+Ox3, euthymic affect Principal Diagnosis R nephrolithiasis at ureteropelvic junction Discharge Exam General: Grossly A&O. NAD. Cooperative. HEENT: Atraumatic, normocephalic. Pulm: CTAB. -wheezes, -rales, -rhonchi. Symmetrical chest rise. No respiratory distress. Cardiac: RRR, -mrg. Radial pulses intact and symmetrical. Abdominal: Soft, nondistended. TTP at R groin/inguinal area. Mild CVA TTP on R. Discharge Data Allergies Allergy/AdvReac Type Severity Reaction Status Date / Time cat dander Allergy Unknown ALLERGY Verified 01/20/20 15:02 TESTING + No Known Drug Allergies Allergy Unknown NO KNOWN Verified 01/20/20 15:02 DRUG ALLERGIES PIG WEED Allergy Unknown ALLERGY Uncoded 01/20/20 15:02 TESTED + Consultations 01/20/20 15:28 ED Decision to Admit Stat 01/20/20 18:50 Consult Case Management - Discharge Planning Routine Consult Urology Routine Procedures Performed Operation Date: 01/20/20 15:00 Actual Procedures p Cystoscopy, Right Retrograde Pyelogram, Right Ureteral Stent Insertion(Right) - Curt Crandall DO Ordered Studies 01/20/20 16:14 FL retrograde includes kub Routine Hospital Course (1) Nephrolithiasis: 74 y/o M w/ hx of HTN, HLD, CKD, psoriasis who presented to [facility] on 01/20/20 w/ R obstructing kidney stone w/ 2 wks of r flank pain. s/p R ureteral stent placement stone extraction. todo: PCP f/u in 1 wk. BMP and KUB. urology f/u in 10-14 days. check if hematuria resolved R obstructing nephrolithiasis at ureteropelvic junction - noted on CT abd/pelv 1. Mild to moderate right-sided hydroureteronephrosis secondary to an obstructing 4 mm calculus of the right ureterovesicular junction. 2. Numerous nonobstructing bilateral nephrolithiasis. - s/p R ureteral stent w/ extraction of stone fragment. may need lithotripsy outpatient for remaining nonobstructive stones. per urology, will need KUB prior to outpatient urology f/u visit CHAPINCITO on CKD. - Cr 2.2 yesterday, improving to 1.8 on admission. 1.52 today. CHAPINCITO has resolved. Cr ~baseline. - repeat bmp and UA during office f/u HTN: held home losartan initially for CHAPINCITO, but since restarted HLD: held statin initially for CHAPINCITO, but since restarted psoriasis - continue etanercept every other week as outpatient DVT ppx: SCDs. did not use medical ppx because of hematuria dispo: home code status: full (2) HTN (hypertension): (3) HLD (hyperlipidemia): (4) Psoriatic arthropathy: (5) DVT prophylaxis: (6) Psoriasis: Total Time Total Time Spent Total Time Spent (In Minutes): Please see attending documentation. Discharge Plan Discharge Items Patient Disposition: Home - Self-Care Reason For Visit: OBSTRUCTING RENAL STONE Discharge Diagnosis: R obstructing nephrolithiasis at ureteropelvic junction Condition on Discharge: Good Activity: Per Instructions section Non-emergency contact: Primary Care Provider and Urologist Call non-emergency contact if: you have any medication questions and you have a fever Follow-up/Referrals: Carlos Patten MD [Primary Care Provider] - Diet: Heart Healthy Addtl Attending Provider Instructions: You were admitted to [facility] on 01/20/20 for 2 wks of R flank pain. You had seen your outpatient PCP who noted some blood on your urinalysis and worsened kidney function and recommended going to the ED> In the ED, a CT scan showed a stone at your R ureter at the area where it connects to the kidney. A procedure was performed that removed the stone and placed a stent. After this procedure, you stated that the pain at your flank resolved, but you have R groin pain and some burning during urination. This is normal after the procedure. Please take Tylenol as needed, no more than 2500mg in a day. Your kidney function (creatinine) improved during this admission and went from 2.26->1.52, near your normal baseline. Please follow up w/ urology in the outpatient office in ~10 days. You will need a KUB (abdominal xray) prior to this visit so that your urologist can see how the stent is doing and if the remaining stones in your kidney need treatment. Please also follow up with your PCP in 1 wk and have kidney labs (BMP) and the abdominal xray (KUB) checked. Return precautions: If you develop any new or worsening symptoms including fever, chills, sweats, chest pain, chest pressure, difficulty breathing, uncontrolled nausea/vomiting, rash, wheezing, passing out or nearly passing out, bleeding, black/bloody bowel movements, or other new or concerning symptoms please call your primary care physician, or call 911 for re-evaluation in the e mergency department if you are very concerned. Pending Studies at Discharge: No Stand-Alone Forms: [facility] [employer], Opioid Pain Management, Smoking Cessation Medications and DC Order Prescriptions: Continued losartan 100 mg tablet 100 mg PO DAILY Qty: 90 RF: 3 atorvastatin 10 mg tablet 10 mg PO DAILY Qty: 90 RF: 3 montelukast 10 mg tablet 10 mg PO DAILY Qty: 90 RF: 3 cyclobenzaprine 5 mg tablet 5 mg PO TID PRN (Reason: muscle spasm) Qty: 20 RF: 1 clobetasol 0.05 % ointment 1 applic topical BID RF: 0 desonide 0.05 % cream 1 applic topical DAILY RF: 0 multivitamin [Daily Multi-Vitamin] tablet 1 tab PO DAILY RF: 0 fluocinonide 0.05 % cream 1 applic topical DAILY RF: 0 triamcinolone acetonide 0.1 % cream 1 applic topical DAILY RF: 0 Saccharomyces boulardii 250 mg capsule 250 mg PO UD RF: 0 naproxen 500 mg tablet 500 mg PO BID PRN (Reason: Pain) Qty: 180 RF: 0 hydroxyzine HCl 10 mg tablet 10 mg PO TID PRN (Reason: Anxiety) RF: 0 fexofenadine 180 mg tablet 180 mg PO DAILY RF: 0 etanercept 25 mg/0.5 mL (0.5) syringe 50 mg subcut UD RF: 0 cemnesc-vwythltpetbwm-usjarzsq 250-250-65 mg tablet 2 tab PO ONCE PRN (Reason: Headache) RF: 0 calcium acetate 667 mg Tablet 667 mg PO DAILY RF: 0 Discharge Orders: Discharge Order (Routine); Ordered 01/21/20 Ordered By: Sam Castorena/Other Patient Handouts: Having a Ureteral Stent, Understanding Kidney Stones Admission Data Admit Date/Time: 01/20/20 17:57 Attending Provider: Sadie Gates Admit Provider: Lisa Guy Primary Care Provider: Carlos Patten Other Providers: Lisa Guy ; Curt Crandall Other Interventions: Discharge Summary Assessment (RN) Last Done: 01/21/20 15:35 Supervising Physician Co-Signing Physician Notes Resident Physician Supervision Note: I independently interviewed and examined the patient and verified the dhaliwal history and physical, reviewed labs and image studies, discussed the case with the resident Dr. Apodaca and agree with the findings and care plan. Resident Activity Tracking Resident Involvement: Resident Care Provided Care Provided: Adult Hospital Medicine
[2020-01-21] MEDS ORDERED: CLOBETASOL PROPIONATE 0.05% OINT 15 GM TUBE EXT SCH (21:00)
--- NOTE | 2020-01-21 22:52 | Electrocardiogram Report ---
Test Reason : Blood Pressure : / mmHG Vent. Rate : 054 BPM Atrial Rate : 054 BPM P-R Int : 138 ms QRS Dur : 100 ms QT Int : 444 ms P-R-T Axes : 063 -13 026 degrees QTc Int : 421 ms Sinus bradycardia Otherwise normal ECG No previous ECGs available Confirmed by Ghassan Smith ([id number]) on 01/21/2020 10:52:05 PM Referred By: Carlos Patten Confirmed By:Ghassan Smith
[2020-01-27 17:00] LABS: Component 2 DNR; Source URETER
--- NOTE | 2020-02-03 09:07 | Coding Query ---
CODING QUERY To promote full compliance with coding requirements relating to patient care, provider participation is requested in all cases of intensive care unit nurse uncertainty. Please assist us with the question(s) below: Please clarify the meaning of CHAPINCITO. CHAPINCITO is not a valid abbreviation. Thank you. ( x ) Acute Kidney Injury ( ) Acute Kidney Insufficiency ( ) Other (Specify): Principal Diagnosis: "that condition established after study, to be chiefly responsible for occasioning the admission of the patient to the hospital for care." Co-Existing Principal Diagnosis: "when two or more diagnoses equally meet the criteria for principal diagnosis as determined by the circumstances of admission, diagnostic work up, and/or therapy provided, and the Alphabetic Index, Tabular List, or another coding guideline does not provide sequencing direction, any one of the diagnoses may be sequenced first." "When the physician has documented what appears to be a current diagnosis in the body of the record, but has not included the diagnosis in the final diagnostic statement, the physician should be asked whether the diagnosis should be added." (Source Coding [facility] 2 QTR90. p3-4) CORNELIUS
--- NOTE | 2020-02-03 09:07 | Coding Query ---
CHRONIC KIDNEY DISEASE To promote full compliance with coding requirements relating to patient care, physician participation is requested in all cases of hcc coders uncertainty. Please assist us with the question(s) below: Coding Question(s): The record reflects the following clinical findings: CKD unspecified stage Please specify the known or suspected type by placing an "X" within the parenthesis (x). If other, please document type. Please document Staging if known: ( ) Stage I >90 Kidney damage with normal or elevated GFR. ( ) Stage II 60-89 Kidney damage with mildly decreased kidney function (x ) Stage III 30-59 Moderately decreased kidney function ( ) Stage IV 15-29 Severely decreased kidney function ( ) Stage V <15 Renal failure (or dialysis) ( ) End Stage ( ) Unknown Thank you [facility]
== END 2020-01-21 18:15 | disposition home or self-care (01) | DRG 661 ==
LOC: ED 12:58 → ASU 16:25 → SUATTDRO 17:57 → 3W 17:57